=== PATIENT | female | born 1950 | race Caucasian/White ===

== ENCOUNTER 2017-04-26 13:05 | Emergency (ER) | payer MEDICARE, BC ==
[2017-04-26 13:53] VITALS: BP 167/83
[2017-04-26] MEDS ORDERED: diphenhydrAMINE 25 MG/10 ML CUP PO ONE (14:05)
--- NOTE | 2017-04-26 14:08 | EDM.PDOC ---
ED HPI GENERAL MEDICAL PROBLEM - General Chief Complaint: Allergic Reaction Stated Complaint: BEE STING LEFT HAND Time Seen by Provider: 04/26/17 14:00 Source of Information: Reports: Patient History Limitations: Reports: No Limitations - History of Present Illness INITIAL COMMENTS - FREE TEXT/NARRATIVE: Terrie is a 66-year-old female with a history of hypertension and high cholesterol who presents to the emergency department today with increased left hand pain and swelling after being stung by a bee yesterday. Patient has not taken any Benadryl or any other medication for her symptoms. Patient denies any fever, chills, nausea, vomiting. Patient denies any injury or trauma. Onset: Sudden Duration: Day(s): (1) Left Hand Pain Score (Numeric/FACES): 10 - Related Data Allergies Allergy/AdvReac Type Severity Reaction Status Date / Time No Known Allergies Allergy Verified 11/07/16 09:11 Home Meds: Home Meds Aspirin [Pola Chewable] 81 mg PO DAILY 12/30/13 [History] Lisinopril/Hydrochlorothiazide [Lisinopril-Hctz 20-12.5 mg Tab] 1 each PO DAILY 12/30/13 [History] Potassium Chloride [Klor-Con 10] 20 meq PO DAILY 12/30/13 [History] atorvaSTATin [Lipitor] 20 mg PO BEDTIME 09/08/16 [History] Biotin 10 mg PO DAILY 11/06/16 [History] Calcium Carbonate/Vitamin D3 [Calcium 500 + Vit D 400] 2 tab PO DAILY 11/06/16 [ History] Cyanocobalamin (Vitamin B12) [Vitamin B12] 1,000 mcg PO DAILY 11/06/16 [History] Folic Acid 0.4 mg PO DAILY 11/06/16 [History] Gabapentin [Neurontin] 300 mg PO TID 11/06/16 [History] Aspirin 81 mg PO DAILY 04/26/17 [History] amLODIPine [Norvasc] 5 mg PO DAILY 04/26/17 [History] Past Medical History HEENT History: Reports: Cataract Cardiovascular History: Reports: High Cholesterol, 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: Dysfunctional Uterine Bleeding, Fibroids Musculoskeletal History: Reports: Arthritis, Back Pain, Chronic, Fracture Oncologic (Cancer) History: Reports: Other (See Below) Other Oncologic History: skin Dermatologic History: Reports: None - Infectious Disease History Infectious Disease History: Reports: Chicken Pox - Past Surgical History HEENT Surgical History: Reports: Tonsillectomy Female Surgical History: Reports: Hysterectomy Musculoskeletal Surgical History: Reports: Carpal Tunnel, Knee Replacement Dermatological Surgical History: Reports: None, Skin Biopsy Social & Family History - Tobacco Use Smoking Status *Q: Never Smoker Second Hand Smoke Exposure: No - Caffeine Use Caffeine Use: Reports: Coffee - Alcohol Use Days Per Week of Alcohol Use: 5 Number of Drinks Per Day: 2 Total Drinks Per Week: 10 - Recreational Drug Use Recreational Drug Use: No ED ROS ALLERGIC REACTION - Review of Systems Review Of Systems: ROS reveals no pertinent complaints other than HPI. ED EXAM GENERAL NO PERIP PULSE - Physical Exam Exam: See Below Exam Limited By: No Limitations General Appearance: Alert, WD/WN, No Apparent Distress Throat/Mouth: Normal Oropharynx, Other (small blister to lower lip) Head: Atraumatic Neck: Normal Inspection, Supple, Non-Tender Respiratory/Chest: No Respiratory Distress, Lungs Clear Cardiovascular: Regular Rate, Rhythm Extremities: Normal Capillary Refill, Redness, Other (redness and swelling to left hand, mostly dorsal aspect, mildly warm to touch, no abscess formation, strength 4/5 with hand order make up clerk secodary to swelling, sensation intact) Neurological: Alert, Oriented, CN II-XII Intact Psychiatric: Normal Affect, Normal Mood Skin Exam: Warm, Dry Lymphatic: No Adenopathy Course - Vital Signs Last Recorded V/S: Last Vital Signs Temp 36.3 C 04/26/17 13:52 Pulse 61 04/26/17 13:52 Resp 16 04/26/17 13:52 BP 167/83 H 04/26/17 13:52 Pulse Ox 99 04/26/17 13:52 Terrie is a 66-year-old female who presents to the emergency Department today with complaints of left hand pain and swelling after being stung by a bee yesterday. Patient has taken no medications up until this point for her symptoms. On exam, patient's symptoms are consistent with a local reaction to a bee sting, however, the area is mildly warm and erythematous and there is concerns for an early cellulitis. I discussed findings of exam with patient, who is also well hydrated and nontoxic appearing, I am going to start her on a 7 day course of Keflex to treat the cellulitis. Patient was given a dose of Benadryl here in the emergency department, I encouraged her to continue this every 6 hours as needed. Patient was instructed to take Tylenol for pain. I would like her reevaluated in clinic in the next week, reasons to return to the emergency department were discussed, patient is agreeable to plan of care and was discharged in stable condition. - Orders/Labs/Meds Meds: Medications Discontinued Medications Generic Name Dose Route Start Last Admin Trade Name Jessica PRN Reason Stop Dose Admin Diphenhydramine HCl 50 mg 04/26/17 14:05 04/26/17 14:08 Benadryl PO 04/26/17 14:06 50 mg ONETIME ONE Administration Departure - Departure Time of Disposition: 14:15 Disposition: Home, Self-Care 01 Condition: Good Clinical Impression: Bee sting reaction Qualifiers: Encounter type: initial encounter Injury intent: accidental or unintentional Qualified Code(s): T63.441A - Toxic effect of venom of bees, accidental ( unintentional), initial encounter Cellulitis Qualifiers: Site of cellulitis: extremity Site of cellulitis of extremity: upper extremity Laterality: left Qualified Code(s): L03.114 - Cellulitis of left upper limb - Discharge Information Instructions: Cellulitis, Adult, Bee, Wasp, or Hornet Sting Referrals: Ga Urias MD [Primary Care Provider] - Forms: ED Department Discharge Additional Instructions: Terrie, please start the Keflex when you get home and take as prescribed, you can also take Benadryl 25-50 mg every 4-6 hours to help with the swelling in your hand. I would recommend Tylenol 650 mg every 4 hours for pain. Follow-up with your primary care provider if her symptoms have not improved in the next 2- 3 days. If he develops any worsening symptoms such as increased redness or warmth to her hand, fever/chills/nausea/vomiting, I would like to see you back in the emergency department.
== END 2017-04-26 14:15 | disposition home or self-care (01) ==
LOC: JP.ED 13:05
DX: T63.441A Toxic effect of venom of bees, accidental (unintentional), initial encounter (principal); L03.114 Cellulitis of left upper limb; I10 Essential (primary) hypertension; E78.00 Pure hypercholesterolemia, unspecified; M19.90 Unspecified osteoarthritis, unspecified site; Z90.710 Acquired absence of both cervix and uterus; Z96.659 Presence of unspecified artificial knee joint; Z98.890 Other specified postprocedural states; Z79.82 Long term (current) use of aspirin; Z79.899 Other long term (current) drug therapy
CPT/HCPCS: 99283; A9270

== ENCOUNTER 2019-05-24 21:36 | Emergency (ER) | payer MEDICARE, BC ==
[2019-05-24 23:04] VITALS: BP 142/74; PULSE 78
[2019-05-24] MEDS ORDERED: Sodium Chloride 0.9% 10 ML Syringe FLUSH PRN (23:04)
[2019-05-24] MEDS ORDERED: fentaNYL 100 MCG/2 ML SDV IVPUSH ONE (23:05)
--- NOTE | 2019-05-24 23:08 | EDM.PDOC ---
ED HPI GENERAL MEDICAL PROBLEM - General Chief Complaint: Back Pain or Injury Stated Complaint: FELL Time Seen by Provider: 05/24/19 22:56 Source of Information: Reports: Patient, Family, RN Notes Reviewed History Limitations: Reports: No Limitations - History of Present Illness INITIAL COMMENTS - FREE TEXT/NARRATIVE: 69-year-old female presents emergency department today complaint of right chest pain, she injured herself earlier in the day when she tripped and fell into a wood pile, is having significant pain with any deep inspiration right side Pain Score (Numeric/FACES): 8 - Related Data Allergies Allergy/AdvReac Type Severity Reaction Status Date / Time No Known Allergies Allergy Verified 05/24/19 22:43 Home Meds: Home Meds Aspirin [Pola Chewable] 81 mg PO DAILY 12/30/13 [History] Lisinopril/Hydrochlorothiazide [Lisinopril-Hctz 20-12.5 mg Tab] 1 each PO DAILY 12/30/13 [History] Potassium Chloride [Klor-Con 10] 20 meq PO DAILY 12/30/13 [History] atorvaSTATin [Lipitor] 20 mg PO BEDTIME 09/08/16 [History] Biotin 10 mg PO DAILY 11/06/16 [History] Calcium Carbonate/Vitamin D3 [Calcium 500 + Vit D 400] 2 tab PO DAILY 11/06/16 [ History] Cyanocobalamin (Vitamin B12) [Vitamin B12] 1,000 mcg PO DAILY 11/06/16 [History] Folic Acid 0.4 mg PO DAILY 11/06/16 [History] amLODIPine [Norvasc] 5 mg PO DAILY 04/26/17 [History] Past Medical History HEENT History: Reports: Cataract, Impaired Vision, Other (See Below) Other 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 Cardiovascular History: Reports: High Cholesterol, 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: Dysfunctional 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 Bleeding, Fibroids Musculoskeletal History: Reports: Arthritis, Back Pain, Chronic, Fracture Oncologic (Cancer) History: Reports: Thyroid, Other (See Below) Other Oncologic History: skin - Infectious Disease History Infectious Disease History: Reports: Chicken Pox - Past Surgical History HEENT Surgical History: Reports: Tonsillectomy Female Surgical History: Reports: Hysterectomy Musculoskeletal Surgical History: Reports: Carpal Tunnel, Knee Replacement Dermatological Surgical History: Reports: None, Skin Biopsy Social & Family History - Tobacco Use Smoking Status *Q: Never Smoker - Caffeine Use Caffeine Use: Reports: Coffee - Alcohol Use Days Per Week of Alcohol Use: 2 Number of Drinks Per Day: 3 Total Drinks Per Week: 6 - Recreational Drug Use Recreational Drug Use: No ED ROS GENERAL - Review of Systems Review Of Systems: See Below Constitutional: Reports: No Symptoms HEENT: Reports: No Symptoms Respiratory: Reports: Shortness of Breath Cardiovascular: Reports: Chest Pain ED EXAM, UPPER BACK/NECK PAIN - Physical Exam Exam: See Below Exam Limited By: No Limitations General Appearance: Alert, Mild Distress Cardiovascular/Respiratory: Regular Rate, Rhythm, No M/R/G, Normal Breath Sounds , No Respiratory Distress, Other (Tenderness to palpation right side of the chest posterior aspect) GI/Abdominal: Soft, Non-Tender Course - Vital Signs Last Recorded V/S: Last Vital Signs Temp 97.6 F 05/24/19 22:48 Pulse 78 05/24/19 23:03 Resp 16 05/24/19 22:48 BP 142/74 H 05/24/19 23:03 Pulse Ox 94 L 05/24/19 22:48 - Orders/Labs/Meds Orders: Active Orders 24 hr Category Date Time Status Peripheral IV Care [RC] . DIRECTED Care 05/24/19 23:05 Active Cyclobenzaprine [Flexeril] Med 05/25/19 01:40 Once 10 mg PO ONETIME ONE Iopamidol [Isovue-300 (61%)] Med 05/24/19 23:30 Active 100 ml IV . DIRECTED Sodium Chloride 0.9% [Normal Saline] 1,000 ml Med 05/24/19 23:15 Active IV ASDIRECTED Sodium Chloride 0.9% [Normal Saline] 75 ml Med 05/24/19 23:30 Active IV ASDIRECTED Sodium Chloride 0.9% [Saline Flush] Med 05/24/19 23:04 Active 10 ml FLUSH ASDIRECTED PRN Peripheral IV Insertion Adult [OM.PC] Urgent Oth 05/24/19 23:04 Ordered Medication Orders Sodium Chloride (Normal Saline) 1,000 mls @ 500 mls/hr IV ASDIRECTED SARAI Sodium Chloride (Normal Saline) 75 mls @ 3 mls/sec IV ASDIRECTED SARAI Iopamidol (Isovue-300 (61%)) 100 ml IV . DIRECTED SARAI Sodium Chloride (Saline Flush) 10 ml FLUSH ASDIRECTED PRN PRN Reason: Keep Vein Open Last Admin: 05/24/19 23:30 Dose: 10 ml Labs: Laboratory Tests 05/24/19 Range/Units 23:30 Sodium 142 (140-148) mmol/L Potassium 3.3 L (3.6-5.2) mmol/L Chloride 103 (100-108) mmol/L Carbon Dioxide 26 (21-32) mmol/L Anion Gap 16.3 H (5.0-14.0) mmol/L BUN 27 H (7-18) mg/dL Creatinine 1.3 H (0.6-1.0) mg/dL Est Cr Clr Drug Dosing 33.31 mL/min Estimated GFR (MDRD) 40 L (>60) Glucose 111 H (74-106) mg/dL Calcium 9.2 (8.5-10.1) mg/dL Meds: Medications Generic Name Dose Route Start Last Admin Trade Name Freq PRN Reason Stop Dose Admin Sodium Chloride 1,000 mls @ 500 mls/hr 05/24/19 23:15 Normal Saline IV ASDIRECTED SARAI Sodium Chloride 75 mls @ 3 mls/sec 05/24/19 23:30 Normal Saline IV ASDIRECTED SARAI Iopamidol 100 ml 05/24/19 23:30 Isovue-300 (61%) IV . DIRECTED SARAI Sodium Chloride 10 ml 05/24/19 23:04 05/24/19 23:30 Saline Flush FLUSH 10 ml ASDIRECTED PRN Administration Keep Vein Open Discontinued Medications Generic Name Dose Route Start Last Admin Trade Name Freq PRN Reason Stop Dose Admin Fentanyl 50 mcg 05/24/19 23:05 05/24/19 23:33 Sublimaze IVPUSH 05/24/19 23:06 50 mcg ONETIME ONE Administration Sodium Chloride 10 ml 05/24/19 23:19 05/25/19 00:53 Saline Flush FLUSH 05/24/19 23:20 Not Given ONETIME ONE Departure - Departure Time of Disposition: 01:44 Disposition: Home, Self-Care 01 Condition: Fair Clinical Impression: Rib fracture Qualifiers: Encounter type: initial encounter Rib fracture type: single rib Fracture type: closed Laterality: right Qualified Code(s): S22.31XA - Fracture of one rib, right side, initial encounter for closed fracture Pneumothorax Qualifiers: Pneumothorax type: traumatic Encounter type: initial encounter Qualified Code(s ): S27.0XXA - Traumatic pneumothorax, initial encounter - Discharge Information Referrals: Ga Urias MD [Primary Care Provider] - Forms: ED Department Discharge Additional Instructions: Use the oxycodone as needed for pain control, try the Flexeril as needed for muscle relaxant, Please followup with your primary care provider in 3-5 days if not better, please call return to the emergency department with worsening of symptoms. - My Orders Last 24 Hours: My Active Orders 05/24/19 23:04 Sodium Chloride 0.9% [Saline Flush] 10 ml FLUSH ASDIRECTED PRN Peripheral IV Insertion Adult [OM.PC] Urgent 05/24/19 23:05 Peripheral IV Care [RC] . DIRECTED 05/24/19 23:15 Sodium Chloride 0.9% [Normal Saline] 1,000 ml IV ASDIRECTED 05/24/19 23:30 Iopamidol [Isovue-300 (61%)] 100 ml IV . DIRECTED Sodium Chloride 0.9% [Normal Saline] 75 ml IV ASDIRECTED 05/25/19 01:40 Cyclobenzaprine [Flexeril] 10 mg PO ONETIME ONE - Assessment/Plan Last 24 Hours: My Active Orders 05/24/19 23:04 Sodium Chloride 0.9% [Saline Flush] 10 ml FLUSH ASDIRECTED PRN Peripheral IV Insertion Adult [OM.PC] Urgent 05/24/19 23:05 Peripheral IV Care [RC] . DIRECTED 05/24/19 23:15 Sodium Chloride 0.9% [Normal Saline] 1,000 ml IV ASDIRECTED 05/24/19 23:30 Iopamidol [Isovue-300 (61%)] 100 ml IV . DIRECTED Sodium Chloride 0.9% [Normal Saline] 75 ml IV ASDIRECTED 05/25/19 01:40 Cyclobenzaprine [Flexeril] 10 mg PO ONETIME ONE Plan: Assessment Acuity = acute Site and laterality = 10th rib fracture right side, small pneumothorax less than 1% right side Etiology = secondary to trauma Manifestations = pain Location of injury = Home Lab values = potassium low at 3.3 consistent with hypokalemia, creatinine elevated 1.3 consistent chronic renal failure stage G IIIB, CT scan describes a rib fracture or pneumothorax above Plan She had good relief with the fentanyl provided, I did discuss options with her including hospitalization however she declined the pneumothorax is less than 1% I counseled her on difficulty breathing she needs to return to the emergency department. For pain control try oxycodone, 5/325 one tab by mouth 3 times a day when necessary total #10, Flexeril 1 tablet by mouth 3 times a day when necessary 10 mg total #15 This note was dictated using [employer] voice recognition software please call with any questions on syntax or grammar.
[2019-05-24] MEDS ORDERED: Sodium Chloride 0.9% 1,000 ML IV SCH (23:15)
[2019-05-24] MEDS ORDERED: Sodium Chloride 0.9% 10 ML Syringe FLUSH ONE (23:19)
[2019-05-24] MEDS ORDERED: Sodium Chloride 0.9% 75 ML IV SCH (23:30)
[2019-05-24] MEDS ORDERED: Iopamidol 612 MG/ML 100 ML Bottle IV SCH (23:30)
--- NOTE | 2019-05-25 01:23 | CRLCT ---
INDICATION: Trauma TECHNIQUE: CT chest without contrast. COMPARISON: None available FINDINGS: Evaluation is limited for trauma given the lack of intravenous contrast. Cardiovascular structures: Heart size is normal. Thoracic aorta and main pulmonary artery are normal in caliber. Atherosclerotic changes. Mediastinum and ambrocio: No sign of mass or adenopathy. Small fluid in pericardial recesses in the AP window and left perihilar and subcarinal regions. Lungs: A tiny right medial apical and anterior basilar pneumothorax. Bibasilar compressive subsegmental atelectasis. Pleura and pericardium: No effusions. Chest wall and axilla: Asymmetrical densities in the bilateral breasts which could be related to glandular tissue. No abnormally enlarged axillary lymph nodes. Thyroid lesions and calcifications. A focus of induration in the right flank subcutaneous fat. Upper abdomen: Unremarkable. Bones: A fracture of the posterior right 10th rib. Lucent lesions in several vertebral bodies, as well as a sclerotic focus in the T8 vertebral body. IMPRESSION: A posterior right 10th rib fracture. A tiny right pneumothorax. Bilateral thyroid lesions. Correlate with nonemergent sonography. Asymmetrical densities in the breasts could represents glandular tissue, however follow-up with formal breast evaluation/mammography. Lucent and sclerotic lesions in several vertebral bodies. Recommend further clinical evaluation and follow-up with bone scan to exclude neoplasm/metastatic disease. The findings were discussed with Officer, by phone, on 05/25/2019 at 1:15 a.m.. Dictated by Ash Christensen MD @ 05/25/2019 1:20:41 AM Please note that all CT scans at this facility use dose modulation, iterative reconstruction, and/or weight-based dosing when appropriate to reduce radiation dose to as low as reasonably achievable. Dictated by: Ash Christensen MD @ 05/25/2019 01:20:47 (Electronically Signed)
[2019-05-25] MEDS ORDERED: Cyclobenzaprine 10 MG Tab PO ONE (01:40)
== END 2019-05-25 02:17 | disposition home or self-care (01) ==
LOC: JP.ED 21:36
DX: S27.0XXA Traumatic pneumothorax, initial encounter (principal); S22.31XA Fracture of one rib, right side, initial encounter for closed fracture; I10 Essential (primary) hypertension; Z79.899 Other long term (current) drug therapy; Z79.82 Long term (current) use of aspirin; W01.198A Fall on same level from slipping, tripping and stumbling with subsequent striking against other object, initial encounter
CPT/HCPCS: 36415; 71250; 80048; 96374; 99283; 99285; A9270; J3010

== ENCOUNTER 2020-03-01 20:37 | Emergency (ER) | payer MEDICARE, BC ==
[2020-03-01 21:31] VITALS: BP 159/78; PULSE 84
[2020-03-01] MEDS ORDERED: diphenhydrAMINE 50 MG/ML SDV IVPUSH ONE (22:04)
[2020-03-01] MEDS ORDERED: Prochlorperazine 10 MG/2 ML SDV IVPUSH ONE (22:04)
[2020-03-01] MEDS ORDERED: Ketorolac 30 MG/ML SDV IVPUSH ONE (22:05)
[2020-03-01] MEDS ORDERED: Sodium Chloride 0.9% 1,000 ML IV SCH (22:15)
--- NOTE | 2020-03-01 22:29 | EDM.PDOC ---
ED HPI GENERAL MEDICAL PROBLEM - General Chief Complaint: Headache Stated Complaint: MIGRAINE Time Seen by Provider: 03/01/20 22:16 Source of Information: Reports: Patient History Limitations: Reports: No Limitations - History of Present Illness INITIAL COMMENTS - FREE TEXT/NARRATIVE: Headache x3 days. Patient presents for evaluation of a mostly right sided headache that has been there since earlier in the week. She has had an intermittent headache history for a long time but it is been a number of years since she has had headache pain like this she is experiencing today. It starts near the right ear and wraps up the scalp towards the crown of the head. There is a little bit of discomfort in the region of the left ear but the symptoms are primarily right-sided. When she has pain, they are like lightning bolt sensations that fire across the entire headache region. She has had some nausea but no vomiting today, she did yesterday. She is phonophobic and photophobic although reports that she is light sensitive when not having headaches as well. No other recent illnesses. Onset: Gradual Duration: Day(s): (3) Location: Reports: Head Quality: Reports: Ache, Pressure, Throbbing Severity: Severe Improves with: Reports: None Worsens with: Reports: Movement Associated Symptoms: Reports: No Other Symptoms migraine Pain Score (Numeric/FACES): 10 - Related Data Allergies Allergy/AdvReac Type Severity Reaction Status Date / Time No Known Allergies Allergy Verified 03/01/20 21:32 Home Meds: Home Meds Aspirin [Pola Chewable] 81 mg PO DAILY 12/30/13 [History] Lisinopril/Hydrochlorothiazide [Lisinopril-Hctz 20-12.5 mg Tab] 2 each PO DAILY 12/30/13 [History] Potassium Chloride [Klor-Con 10] 20 meq PO DAILY 12/30/13 [History] atorvaSTATin [Lipitor] 20 mg PO BEDTIME 09/08/16 [History] amLODIPine [Norvasc] 5 mg PO DAILY 04/26/17 [History] Amoxicillin 875 mg PO BID 03/02/20 [History] Past Medical History HEENT History: Reports: Cataract, Impaired Vision, Other (See Below) Other 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 Cardiovascular History: Reports: High Cholesterol, 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, Fibroids Musculoskeletal History: Reports: Arthritis, Back Pain, Chronic, Fracture Oncologic (Cancer) History: Reports: Thyroid, Other (See Below) Other Oncologic History: skin Dermatologic History: Reports: None - Infectious Disease History Infectious Disease History: Reports: Chicken Pox - Past Surgical History HEENT Surgical History: Reports: Tonsillectomy Female Surgical History: Reports: Hysterectomy Musculoskeletal Surgical History: Reports: Carpal Tunnel, Knee Replacement Dermatological Surgical History: Reports: Skin Biopsy Social & Family History - Tobacco Use Smoking Status *Q: Never Smoker - Caffeine Use Caffeine Use: Reports: Tea - Recreational Drug Use Recreational Drug Use: No ED ROS GENERAL - Review of Systems Review Of Systems: See Below Constitutional: Reports: No Symptoms HEENT: Reports: No Symptoms Respiratory: Reports: No Symptoms Neurological: Reports: Headache (Right-sided headache as described. There is a small area of left supra auricular headache as well.) Psychiatric: Reports: No Symptoms - Physical Exam Exam: See Below Text/Narrative:: This is an adult female lying in a darkened room #6. Light and sound aggravate her symptoms. Exam Limited By: No Limitations General Appearance: Moderate Distress Eye Exam: Bilateral Eye: Normal Inspection, PERRL Throat/Mouth: Normal Inspection Head Exam: Atraumatic Neck: Normal Inspection Respiratory/Chest: Lungs Clear Cardiovascular: Regular Rate, Rhythm Neuro Exam (Abbreviated): Alert, Oriented, CN II-XII Intact, Normal Cognition Course - Vital Signs Last Recorded V/S: Last Vital Signs Temp 37.1 C 03/01/20 21:33 Pulse 84 03/01/20 21:33 Resp 16 03/01/20 21:33 BP 159/78 H 03/01/20 21:33 Pulse Ox 92 L 03/01/20 21:33 - Orders/Labs/Meds Meds: Medications Discontinued Medications Generic Name Dose Route Start Last Admin Trade Name Freq PRN Reason Stop Dose Admin Diphenhydramine HCl 25 mg 03/01/20 22:04 03/01/20 22:24 Benadryl IVPUSH 03/01/20 22:05 25 mg ONETIME ONE Administration Hydromorphone HCl 0.5 mg 03/01/20 23:18 03/01/20 23:46 Dilaudid IVPUSH 03/01/20 23:19 0.5 mg ONETIME ONE Administration Sodium Chloride 1,000 mls @ 999 mls/hr 03/01/20 22:15 03/01/20 22:15 Normal Saline IV 999 mls/hr ASDIRECTED SARAI Administration Ketorolac Tromethamine 30 mg 03/01/20 22:05 03/01/20 22:18 Toradol IVPUSH 03/01/20 22:06 30 mg ONETIME ONE Administration Prochlorperazine Edisylate 10 mg 03/01/20 22:04 03/01/20 22:21 Compazine IVPUSH 03/01/20 22:05 10 mg ONETIME ONE Administration - Re-Assessments/Exams Free Text/Narrative Re-Assessment/Exam: 03/02/20 04:45 Patient was initially given Toradol 30 mg, Benadryl 25 mg, Compazine 10 mg, all as IV doses. She received 1 L of normal saline by rapid infusion. Recheck later, headache pain was reduced to 78/10. She is hoping to have something else to improve her pain. Hydromorphone 0.5 mg IV was given and at later recheck, headache pain was now 3/10, nausea was gone, and she felt like she was ready to go home. I recommended ensuring adequate hydration as well as using ibuprofen or Aleve as needed for return of headache symptoms. She still occasionally had some of the shooting type pain symptoms and it is possible that what she refers to as her migraine could actually be an element of trigeminal neuralgia. She was discharged in improved condition. Departure - Departure Time of Disposition: 01:20 Disposition: Home, Self-Care 01 Clinical Impression: Migraine - Discharge Information Instructions: Migraine Headache, [id number] Referrals: Ga Urias MD [Primary Care Provider] - Forms: ED Department Discharge Additional Instructions: Ensure adequate fluids through the next several days. If headache returns, try ibuprofen or naproxen with caffeine. If you feel worse in any way, return to ER. If headache frequency is increasing, recheck with primary care team. Sepsis Event Note (ED) - Evaluation Sepsis Screening Result: No Definite Risk - Focused Exam Vital Signs: Vital Signs Temp Pulse Resp BP Pulse Ox 03/01/20 21:33 37.1 C 84 16 159/78 H 92 L 03/01/20 21:29 37.1 C 84 16 159/78 H 92 L
[2020-03-01] MEDS ORDERED: HYDROmorphone 0.5 MG/0.5 ML Syringe IVPUSH ONE (23:18)
--- NOTE | 2020-03-02 00:30 | CRLCT ---
INDICATION: Persistent headache on right for 3 days TECHNIQUE: CT Head without i.v. contrast. COMPARISON: 10/14/16 FINDINGS: CSF space: Unremarkable for age. Brain: No evidence of mass, acute infarction or hemorrhage is seen. No mass-effect or midline shift is seen. Mild diffuse cortical atrophy is noted. The brain parenchyma is otherwise normal in appearance with preservation of the marcano-white matter junction. Calvarium: The visualized paranasal sinuses are well aerated. The mastoid air cells are clear. The visualized orbits are grossly unremarkable. The calvarium is unremarkable in appearance with no fractures identified. IMPRESSION: 1. No evidence of acute infarction, intracranial hemorrhage, or mass-effect seen. Please note that all CT scans at this facility use dose modulation, iterative reconstruction, and/or weight-based dosing when appropriate to reduce radiation dose to as low as reasonably achievable. Dictated by: Franklin Cisneros MD @ 03/02/2020 00:28:11 (Electronically Signed)
== END 2020-03-02 02:04 | disposition home or self-care (01) ==
LOC: JP.ED 20:37
DX: G43.909 Migraine, unspecified, not intractable, without status migrainosus (principal); I10 Essential (primary) hypertension; E78.00 Pure hypercholesterolemia, unspecified; M19.90 Unspecified osteoarthritis, unspecified site; Z79.82 Long term (current) use of aspirin; Z79.899 Other long term (current) drug therapy
CPT/HCPCS: 70450; 96374; 96375; 99283; J0780; J1170; J1200; J1885; J7030

== ENCOUNTER 2020-03-03 09:09 | Emergency (ER) | payer MEDICARE, BC ==
[2020-03-03] MEDS ORDERED: fentaNYL 100 MCG/2 ML SDV IVPUSH ONE (11:33)
[2020-03-03] MEDS ORDERED: Ondansetron 4 MG/2 ML SDV IVPUSH ONE (11:33)
--- NOTE | 2020-03-03 11:42 | EDM.PDOC ---
ED HPI GENERAL MEDICAL PROBLEM - General Chief Complaint: Headache Stated Complaint: MIGRAINE Time Seen by Provider: 03/03/20 11:38 - History of Present Illness INITIAL COMMENTS - FREE TEXT/NARRATIVE: 69-year-old female presents to the emergency department with a right-sided headache that she has had for 4 days. She was seen here on 03/01 and diagnosed with migraine. She was treated initially with a cocktail of Toradol, Benadryl and Zofran. She was given a liter of fluids. She had a negative CT scan of the head. She eventually was treated with IV Dilaudid and her pain improved. She is able sleeping at night. She returns today because the headache again is severe. She describes as a lightening, jolt feeling over the right side of her head. It primarily is above the right ear. It seems to come in waves. She denies any specific triggers. She denies any mitigating factors. She notes that noise will increase her discomfort. She reports nausea and vomiting. She has tried ibuprofen naproxen without relief. She denies a history of migraines. She has no fever or chills. She denies any tick bites. There is been no confusion. She has no neurological symptoms otherwise. 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 Headache Pain Score (Numeric/FACES): 9 - Related Data Allergies Allergy/AdvReac Type Severity Reaction Status Date / Time No Known Allergies Allergy Verified 03/03/20 09:28 Home Meds: Home Meds Aspirin [Pola Chewable] 81 mg PO DAILY 12/30/13 [History] Lisinopril/Hydrochlorothiazide [Lisinopril-Hctz 20-12.5 mg Tab] 2 each PO DAILY 12/30/13 [History] Potassium Chloride [Klor-Con 10] 20 meq PO DAILY 12/30/13 [History] atorvaSTATin [Lipitor] 20 mg PO BEDTIME 09/08/16 [History] amLODIPine [Norvasc] 5 mg PO DAILY 04/26/17 [History] Amoxicillin 875 mg PO BID 03/02/20 [History] Past Medical History HEENT History: Reports: Cataract, Impaired Vision, Other (See Below) Other 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 Cardiovascular History: Reports: High Cholesterol, Hypertension 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: Dysfunctional Uterine Bleeding, Fibroids Musculoskeletal History: Reports: Arthritis, Back Pain, Chronic, Fracture Neurological History: Reports: Migraines Oncologic (Cancer) History: Reports: Thyroid, Other (See Below) Other Oncologic History: skin Dermatologic History: Reports: None - Infectious Disease History Infectious Disease History: Reports: Chicken Pox - Past Surgical History HEENT Surgical History: Reports: Tonsillectomy Female Surgical History: Reports: Hysterectomy Musculoskeletal Surgical History: Reports: Carpal Tunnel, Knee Replacement Dermatological Surgical History: Reports: Skin Biopsy Social & Family History - Tobacco Use Smoking Status *Q: Never Smoker - Caffeine Use Caffeine Use: Reports: Soda, Tea - Alcohol Use Days Per Week of Alcohol Use: 4 Number of Drinks Per Day: 4 Total Drinks Per Week: 16 Date of Last Drink: 02/28/20 - Recreational Drug Use Recreational Drug Use: No ED ROS GENERAL - Review of Systems Review Of Systems: See Below Constitutional: Denies: Fever, Chills, Diaphoresis HEENT: Denies: Vision Change Respiratory: Reports: No Symptoms Cardiovascular: Reports: No Symptoms GI/Abdominal: Reports: Nausea, Vomiting Musculoskeletal: Denies: Neck Pain, Back Pain Skin: Denies: Rash Neurological: Reports: Headache. Denies: Numbness, Paresthesia, Seizure, Trouble Speaking, Difficulty Walking, Weakness, Change in Speech, Gait Disturbance Psychiatric: Reports: No Symptoms - Physical Exam Exam: See Below Exam Limited By: No Limitations General Appearance: Alert, WD/WN, Moderate Distress Eye Exam: Bilateral Eye: Other (Normal pupils bilaterally.) Ears: Normal External Exam, Normal Canal, Normal TMs Nose: Normal Inspection Throat/Mouth: Normal Inspection, Normal Lips, Normal Teeth Head Exam: Atraumatic, Normocephalic, Other (She had no tenderness over the occipital grooves either on palpation or by percussion.) Neck: Normal Inspection, Other (No nuchal rigidity.) Neuro Exam (Abbreviated): Alert, Oriented, CN II-XII Intact, Normal Cognition, No Motor/Sensory Deficits. No: Confused, Disoriented, Sensory/Motor Deficit Psychiatric: Normal Affect, Normal Mood, Anxious Skin Exam: No: Rash Course - Vital Signs Text/Narrative:: This patient has a sharp shooting pain in the right side of her head. She may have an occipital neuralgia or pain from a beginning shingles rash. She had a normal CT scan of the head yesterday and her CT scan of the neck today shows degenerative changes on the left side but not the right. She has a normal sedimentation rate so I do not think she has a temporal arteritis. She had normal white blood count, urinalysis and basic metabolic profile. She has an intact neurologic exam. She was given a liter of IV fluids, fentanyl and Zofran. It provided little relief. I offered hospitalization but do not feel that it would be of benefit in this patient. I do not think she has an infectious cause as she has a soft neck and normal neurologic exam. She will drink plenty of fluids take hydrocodone 5/325 mg 1 or 2 tablets every 6 hours as needed for pain and follow-up with primary care on Thursday or Thursday if she continues to have problems. I offered a occipital nerve block however she declined it. The patient will return here as needed. Last Recorded V/S: Last Vital Signs Temp 35.5 C L 03/03/20 09:25 Pulse 68 03/03/20 11:42 Resp 14 03/03/20 11:42 BP 153/80 H 03/03/20 11:42 Pulse Ox 96 03/03/20 11:42 - Orders/Labs/Meds Orders: Active Orders 24 hr Category Date Time Status LYME, TOTAL AB TEST/REFLEX Stat Lab 03/03/20 11:55 Received Sodium Chloride 0.9% [Normal Saline] 1,000 ml Med 03/03/20 11:45 Active IV ASDIRECTED Medication Orders Sodium Chloride (Normal Saline) 1,000 mls @ 1,000 mls/hr IV ASDIRECTED SARAI Last Admin: 03/03/20 11:53 Dose: 1,000 mls/hr Documented by: NAPOLEON Labs: Laboratory Tests 03/03/20 03/03/20 03/03/20 Range/Units 11:55 11:55 13:23 WBC 8.1 (4.5-11.0) K/uL RBC 4.82 (3.30-5.50) M/uL Hgb 14.0 (12.0-15.0) g/dL Hct 42.9 (36.0-48.0) % MCV 89 (80-98) fL MCH 29 (27-31) pg MCHC 33 (32-36) % Plt Count 252 (150-400) K/uL Neut % (Auto) 71 H (36-66) % Lymph % (Auto) 18 L (24-44) % Rooks % (Auto) 8 H (2-6) % Eos % (Auto) 3 (2-4) % Baso % (Auto) 0 (0-1) % ESR 10 (0-25) mm/hr Sodium 136 L (140-148) mmol/L Potassium 3.5 L (3.6-5.2) mmol/L Chloride 99 L (100-108) mmol/L Carbon Dioxide 29 (21-32) mmol/L Anion Gap 11.5 (5.0-14.0) mmol/L BUN 19 H (7-18) mg/dL Creatinine 1.0 (0.6-1.0) mg/dL Est Cr Clr Drug Dosing 43.30 mL/min Estimated GFR (MDRD) 55 L (>60) Glucose 89 (74-106) mg/dL Calcium 9.1 (8.5-10.1) mg/dL Urine Color Yellow (YELLOW) Urine Appearance Clear (CLEAR) Urine pH 5.5 (5.0-8.0) Ur Specific [place] >= 1.030 (1.008-1.030) Urine Protein Negative (NEGATIVE) mg/dL Urine Glucose (UA) Negative (NEGATIVE) mg/dL Urine Ketones Negative (NEGATIVE) mg/dL Urine Occult Blood Small H (NEGATIVE) Urine Nitrite Negative (NEGATIVE) Urine Bilirubin Negative (NEGATIVE) Urine Urobilinogen 0.2 (0.2-1.0) EU/dL Ur Leukocyte Esterase Negative (NEGATIVE) Urine RBC Not seen (0-5) Urine WBC Not seen (0-5) Ur Epithelial Cells Not seen Urine Bacteria Not seen Urine Mucus Few Meds: Medications Generic Name Dose Route Start Last Admin Trade Name Freq PRN Reason Stop Dose Admin Sodium Chloride 1,000 mls @ 1,000 mls/hr 03/03/20 11:45 03/03/20 11:53 Normal Saline IV 1,000 mls/hr ASDIRECTED SARAI Administration Discontinued Medications Generic Name Dose Route Start Last Admin Trade Name Freq PRN Reason Stop Dose Admin Fentanyl 50 mcg 03/03/20 11:33 03/03/20 11:53 Sublimaze IVPUSH 03/03/20 11:34 50 mcg ONETIME ONE Administration Ondansetron HCl 4 mg 03/03/20 11:33 03/03/20 11:51 Zofran IVPUSH 03/03/20 11:34 4 mg ONETIME ONE Administration Departure - Departure Time of Disposition: 14:01 Disposition: Home, Self-Care 01 Condition: Good Clinical Impression: Cervicalgia - Discharge Information *PRESCRIPTION DRUG MONITORING PROGRAM REVIEWED*: No *COPY OF PRESCRIPTION DRUG MONITORING REPORT IN PATIENT HELEN: No Instructions: General Headache Without Cause, [id number] Referrals: Ga Urias MD [Primary Care Provider] - Forms: ED Department Discharge Additional Instructions: Take Vicodin 1 or 2 tablets every 6 hours as needed for pain. Follow-up with your doctor next week. Return to the ER if you have increased problems or concerns. Drink plenty of fluids. Try an ice pack on the right side of your head to see if it will help reduce pain. Watch for any signs of rash that would suggest shingles. Sepsis Event Note (ED) - Evaluation Sepsis Screening Result: No Definite Risk - Focused Exam Vital Signs: Vital Signs Temp Pulse Resp BP Pulse Ox 03/03/20 11:42 68 14 153/80 H 96 03/03/20 10:57 69 145/80 H 96 03/03/20 09:25 35.5 C L 77 16 138/74 94 L - My Orders Last 24 Hours: My Active Orders 03/03/20 11:45 Sodium Chloride 0.9% [Normal Saline] 1,000 ml IV ASDIRECTED 03/03/20 11:55 LYME, TOTAL AB TEST/REFLEX Stat - Assessment/Plan Last 24 Hours: My Active Orders 03/03/20 11:45 Sodium Chloride 0.9% [Normal Saline] 1,000 ml IV ASDIRECTED 03/03/20 11:55 LYME, TOTAL AB TEST/REFLEX Stat
[2020-03-03 11:43] VITALS: BP 153/80; PULSE 68
[2020-03-03] MEDS ORDERED: Sodium Chloride 0.9% 1,000 ML IV SCH (11:45)
--- NOTE | 2020-03-03 12:52 | CRLCT ---
Indication: Headaches. Neck pain. Technique: Noncontrast axial CT of the cervical spine with coronal and sagittal reformats are provided. Comparison: No prior studies available for comparison at this institution. Findings: There is reversal of cervical lordosis (kyphosis) vertebral body heights are maintained. No aggressive osseous lesions. No evidence of acute fracture, dislocation, or subluxation. Prominent anterior osteophytes are present at C4-5, C5-6, C6-7 and C7-T1. Degenerative sclerotic endplate changes at C5-6 and C6-7. The craniocervical junction is unremarkable. No prevertebral or paraspinal soft tissue swelling. C1-2: No spinal canal stenosis. C2-3: Moderate right facet arthrosis. No spinal canal or neural foramina narrowing. C3-4: There is a osteophyte projecting superiorly from the C4 posterior superior corner without significant stenosis. Moderate left neural from narrowing due to facet arthrosis and uncinate spurring. Mild right facet arthrosis. C4-5: Severe left neural foraminal narrowing due to uncinate spurring and moderate facet arthrosis. No right neural foramina narrowing. Mild spinal canal narrowing. C5-6: Moderate left and mild right neural foramina narrowing by uncovertebral spurring. Disc osteophyte complex results in mild spinal canal narrowing. C6-7: Disc osteophyte complex results in mild spinal canal narrowing. Moderate bilateral neural from narrowing by uncinate spurring. C7-T1: No spinal canal stenosis or neural foramina narrowing. T1-2: No significant spinal canal stenosis or neural foramina narrowing. Lung apices are clear. Heterogeneous left thyroid lobe nodules contains heterogeneous calcifications that could be further evaluated ultrasound if not previously characterized. Impression: 1. No convincing radiographic evidence of acute osseous injury. 2. Scattered degenerative changes of the cervical spine. Disc osteophyte complexes at C4-5, C5-6 and C6-7 result in mild spinal canal narrowing. Severe left neural foramina narrowing at C4-5 due to uncinate spurring and moderate facet arthrosis. Prominent anterior osteophytes at C4-5 through C7-T1. 3. Right thyroid gland is not visualized. Heterogeneous left thyroid lobe with probable several small nodules. Calcifications in the left thyroid parenchyma. Please note that all CT scans at this facility use dose modulation, iterative reconstruction, and/or weight-based dosing when appropriate to reduce radiation dose to as low as reasonably achievable. Dictated by Mohsen Jones MD @ Mar 04 2020 8:31AM Signed by Dr. Mohsen Jones @ Mar 04 2020 8:36AM
[2020-03-07 11:12] LABS: LYME IGG/IGM AB <0.91 ISR (0.00-0.90)
== END 2020-03-03 14:52 | disposition home or self-care (01) ==
LOC: JP.ED 09:09
DX: M54.2 Cervicalgia (principal); E78.00 Pure hypercholesterolemia, unspecified; M19.90 Unspecified osteoarthritis, unspecified site; I10 Essential (primary) hypertension; Z79.82 Long term (current) use of aspirin; Z79.899 Other long term (current) drug therapy
CPT/HCPCS: 36415; 64450; 72125; 80048; 81001; 85025; 85651; 96361; 96374; 96375; 99284; J2001; J2405; J3010; J7030; 86618

== ENCOUNTER 2021-03-17 16:59 | Emergency (ER) | payer MEDICARE, BC ==
[2021-03-17 17:07] VITALS: BP 152/85; PULSE 95
[2021-03-17] MEDS ORDERED: diphenhydrAMINE 50 MG/ML SDV IVPUSH ONE (17:17)
[2021-03-17] MEDS ORDERED: methylPREDNISolone Sodium Succinate 125 MG/2 ML SDV IVPUSH ONE (17:24)
--- NOTE | 2021-03-17 17:33 | EDM.PDOC ---
ED HPI GENERAL MEDICAL PROBLEM - General Chief Complaint: Allergic Reaction Stated Complaint: BEE STING Time Seen by Provider: 03/17/21 17:00 Source of Information: Reports: Patient, Family History Limitations: Reports: No Limitations - History of Present Illness INITIAL COMMENTS - FREE TEXT/NARRATIVE: 70-year-old female got stung by a bee right on the tip of her tongue about 1 hour prior to coming into the emergency room. She has not taken any Benadryl, but she has significant swelling of her tongue and dysarthria and is concerned about her airway. She has no shortness of breath, no headache, no fevers or chills. Onset: Sudden Duration: Minutes: (20 minutes ago) Location: Reports: Other (Stung on the tip of her tongue.) Quality: Reports: Dull, Pressure Associated Symptoms: Reports: No Other Symptoms - Related Data Allergies Allergy/AdvReac Type Severity Reaction Status Date / Time No Known Allergies Allergy Verified 03/17/21 17:12 Home Meds: Home Meds Aspirin [Pola Chewable] 81 mg PO DAILY 12/30/13 [History] Lisinopril/Hydrochlorothiazide [Lisinopril-Hctz 20-12.5 mg Tab] 2 each PO DAILY 12/30/13 [History] Potassium Chloride [Klor-Con 10] 20 meq PO DAILY 12/30/13 [History] atorvaSTATin [Lipitor] 20 mg PO BEDTIME 09/08/16 [History] amLODIPine [Norvasc] 5 mg PO DAILY 04/26/17 [History] Levothyroxine Sodium [Euthyrox] 1 tab PO DAILY 03/17/21 [History] Past Medical History HEENT History: Reports: Cataract, Impaired Vision, Other (See Below) Other 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 Cardiovascular History: Reports: High Cholesterol, Hypertension 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: Dysfunctional Uterine Bleeding, Fibroids Musculoskeletal History: Reports: Arthritis, Back Pain, Chronic, Fracture Neurological History: Reports: Migraines Oncologic (Cancer) History: Reports: Thyroid, Other (See Below) Other Oncologic History: skin Dermatologic History: Reports: None - Infectious Disease History Infectious Disease History: Reports: Chicken Pox - Past Surgical History HEENT Surgical History: Reports: Tonsillectomy Cardiovascular Surgical History: Reports: None Female Surgical History: Reports: Hysterectomy Musculoskeletal Surgical History: Reports: Carpal Tunnel, Knee Replacement Oncologic Surgical History: Reports: None Dermatological Surgical History: Reports: Skin Biopsy Social & Family History - Tobacco Use Tobacco Use Status *Q: Never Tobacco User - Caffeine Use Caffeine Use: Reports: Soda, Tea ED ROS ALLERGIC REACTION - Review of Systems Review Of Systems: See Below Constitutional: Denies: Fever, Chills HEENT: Reports: Other (Tongue is edematous and painful) Respiratory: Denies: Shortness of Breath, Cough Cardiovascular: Denies: Chest Pain GI/Abdominal: Reports: No Symptoms Skin: Denies: Erythema Neurological: Denies: Headache Psychiatric: Reports: No Symptoms ED EXAM GENERAL NO PERIP PULSE - Physical Exam Exam: See Below Exam Limited By: No Limitations General Appearance: Alert, No Apparent Distress, Anxious Eye Exam: Bilateral Eye: Normal Inspection Throat/Mouth: Other (Tongue has significant edema, especially the right side with a small blisterlike lesion on the tip of her tongue where she was stung) Head: Atraumatic Neck: Supple, Non-Tender Respiratory/Chest: No Respiratory Distress, Lungs Clear Cardiovascular: Regular Rate, Rhythm Neurological: Alert, Oriented Psychiatric: Anxious Skin Exam: Warm, Dry Course - Vital Signs Last Recorded V/S: Last Vital Signs Temp 97.3 F 03/17/21 17:18 Pulse 95 03/17/21 17:18 Resp 18 03/17/21 17:18 BP 152/85 H 03/17/21 17:18 Pulse Ox 95 03/17/21 17:18 - Orders/Labs/Meds Meds: Medications Discontinued Medications Generic Name Dose Route Start Last Admin Trade Name Valentinq PRN Reason Stop Dose Admin Diphenhydramine HCl 25 mg 03/17/21 17:17 03/17/21 17:33 Diphenhydramine 50 Mg/Ml Sdv IVPUSH 03/17/21 17:18 25 mg ONETIME ONE Administration Methylprednisolone Sodium Succinate 125 mg 03/17/21 17:24 03/17/21 17:33 Methylprednisolone Sodium Succinate 125 Mg/2 Ml Sdv IVPUSH 03/17/21 17:25 125 mg ONETIME ONE Administration - Re-Assessments/Exams Free Text/Narrative Re-Assessment/Exam: 03/17/21 17:34 And IV was started and the patient was given 125 mg of IV Solu-Medrol and 25 mg of IV Benadryl. She was observed for 30 minutes and remained stable without any further swelling. She was also sucking on ice to try to reduce the swelling. She only lives a few minutes from the hospital and wanted to go home, so will be discharged and can return if worsening. Repeating Benadryl every 3-4 hours may be helpful. Departure - Departure Time of Disposition: 18:15 Disposition: Home, Self-Care 01 Clinical Impression: Local reaction to insect sting Qualifiers: Encounter type: initial encounter Injury intent: accidental or unintentional Qualified Code(s): T63.481A - Toxic effect of venom of other arthropod, accidental (unintentional), initial encounter - Discharge Information Instructions: Bee, Wasp, or Hornet Sting, Adult Referrals: Ga Urias MD [Primary Care Provider] - Forms: ED Department Discharge Care Plan Goals: Continue with cold foods, ice or cool liquids and repeat oral Benadryl 50 mg every 4 hours as needed for persistent swelling. Return anytime if symptoms are worsening or you develop other concerns such as shortness of breath or hives. Sepsis Event Note (ED) - Evaluation Sepsis Screening Result: No Definite Risk
== END 2021-03-17 18:16 | disposition home or self-care (01) ==
LOC: JP.ED 16:59
DX: T63.441A Toxic effect of venom of bees, accidental (unintentional), initial encounter (principal); E78.00 Pure hypercholesterolemia, unspecified; I10 Essential (primary) hypertension; R60.0 Localized edema; Z79.82 Long term (current) use of aspirin; Z79.899 Other long term (current) drug therapy
CPT/HCPCS: 96374; 96375; 99282; J1200; J2930

== ENCOUNTER 2021-10-29 08:47 | Day surgery (SDC) | payer MEDICARE, BC ==
[~2021-10-29 08:47] MED LIST: Midazolam 1 MG/ML 2 ML SDV ONE; Propofol 200 MG/20 ML SDV ONE; fentaNYL 100 MCG/2 ML SDV ONE
[2021-10-29] MEDS ORDERED: Lactated Ringers 1,000 ML IV SCH (09:30)
[2021-10-29 11:35] VITALS: BP 156/86; PULSE 52
== END 2021-10-29 11:50 | disposition home or self-care (01) ==
LOC: JP.SDS 08:47
PROVIDERS: ATTEND Family Medicine
DX: R19.5 Other fecal abnormalities (principal); K64.2 Third degree hemorrhoids; I10 Essential (primary) hypertension; E78.5 Hyperlipidemia, unspecified; E03.9 Hypothyroidism, unspecified; Z98.890 Other specified postprocedural states
CPT/HCPCS: J2250; J2704; J3010; J7120

== ENCOUNTER 2023-03-14 16:17 | Emergency (ER) | payer MEDICARE, BC ==
[2023-03-14 17:45] VITALS: BP 143/82; PULSE 67
== END 2023-03-14 18:16 | disposition home or self-care (01) ==
LOC: JP.ED 16:17
DX: M25.532 Pain in left wrist (principal); I10 Essential (primary) hypertension; E78.00 Pure hypercholesterolemia, unspecified; M19.90 Unspecified osteoarthritis, unspecified site; E03.9 Hypothyroidism, unspecified; Z79.82 Long term (current) use of aspirin; Z79.899 Other long term (current) drug therapy
CPT/HCPCS: 73110-26-LT; 73110-LT; 99283

== ENCOUNTER 2023-11-10 18:33 | Emergency (ER) | payer MEDICARE, BC ==
[2023-11-10 18:53] VITALS: BP 139/71; PULSE 80
[2023-11-10] MEDS: HYDROmorphone 0.5 MG/0.5 ML Syringe IM ONE (20:06)
== END 2023-11-10 20:25 | disposition home or self-care (01) ==
LOC: JP.ED 18:33
DX: G50.0 Trigeminal neuralgia (principal); I10 Essential (primary) hypertension; E78.00 Pure hypercholesterolemia, unspecified; E03.9 Hypothyroidism, unspecified; Z90.710 Acquired absence of both cervix and uterus; Z79.899 Other long term (current) drug therapy; Z79.82 Long term (current) use of aspirin
CPT/HCPCS: 96372; 99282; J1170; 99283

== ENCOUNTER 2023-12-31 18:26 | Emergency (ER) | payer MEDICARE, BC ==
[2023-12-31 18:51] VITALS: BP 142/72; PULSE 81
[2023-12-31] MEDS: Acetaminophen/oxyCODONE 325-5 MG Tab PO ONE (20:10)
[2023-12-31 20:17] LABS: BASOPHILS ABSOLUTE AUTO 0.05 K/uL (0.00-0.10); BASOPHILS PERCENT AUTO 0.6 % (0.1-1.3); EOSINOPHILS ABSOLUTE AUTO 0.19 K/uL (0.00-0.40); EOSINOPHILS PERCENT AUTO 2.1 % (0.0-5.4); HEMATOCRIT 40.3 % (34.3-46.0); HEMOGLOBIN 13.8 g/dL (11.2-15.5); IMMATURE GRAN ABSOLUTE AUTO 0.06 K/uL (0.00-0.23); IMMATURE GRAN PERCENT AUTO 0.7 % (0.0-0.7); LYMPHOCYTES ABSOLUTE AUTO 2.26 K/uL (0.8-3.3); LYMPHOCYTES PERCENT AUTO 25.2 % (11.4-47.7); MEAN CORPUSCULAR HEMOGLOBIN 30.8 pg (31.6-35.5); MEAN CORPUSCULAR HGB CONC 34.2 g/dL (31.6-35.5); MONOCYTES ABSOLUTE AUTO 0.53 K/uL (0.20-0.90); MONOCYTES PERCENT AUTO 5.9 % (3.3-12.6); NEUTROPHILS ABSOLUTE AUTO 5.89 K/uL (1.0-7.6); NEUTROPHILS PERCENT AUTO 65.5 % (40.0-78.1); PLATELET COUNT,PLT 220 K/uL (130-375); RED BLOOD CELL COUNT 4.48 M/uL (3.77-5.24)
== END 2023-12-31 20:25 | disposition home or self-care (01) ==
LOC: JP.ED 18:26
DX: M25.561 Pain in right knee (principal); I10 Essential (primary) hypertension; E78.00 Pure hypercholesterolemia, unspecified; E03.9 Hypothyroidism, unspecified; Z96.651 Presence of right artificial knee joint; Z79.82 Long term (current) use of aspirin; Z79.899 Other long term (current) drug therapy
CPT/HCPCS: 36415; 73564; 85025; 99283; A9270